=== PATIENT | male | born 1955 | race Hispanic/Latino ===

== ENCOUNTER 2020-05-29 12:33 | Observation (INO) | payer OTHER ==
[~2020-05-29] VITALS: Ht 182.9 cm; Wt 142.9 kg
[2020-05-29 13:13] LABS: BASOPHILS % (AUTO) 0.6 % (0.0-5.0); HEMATOCRIT 38.8 % (42-54); LYMPHOCYTES % (AUTO) 27.1 % (21.0-51.0); MEAN CORPUSCULAR HEMOGLOBIN 34.1 pg (27.0-33.0); MEAN CORPUSCULAR VOLUME 100.3 fL (79-99); MONOCYTES % (AUTO) 7.6 % (3.0-13.0); NEUTROPHILS % (AUTO) 63.4 % (40.0-77.0); PLATELET COUNT (AUTO) 345 K/uL (130-400); RED BLOOD CELL COUNT(AUTO) 3.87 MIL/uL (4.50-6.20); RED CELL DISTRIBUTION WIDTH 13.1 % (11.0-15.5)
[2020-05-29] MEDS ORDERED: ASPIRIN 325 MG TABLET ONE (13:14)
[2020-05-29 13:24] LABS: INR 0.96 (0.85-1.15); PROTHROMBIN TIME 10.5 SEC (9.6-11.6)
[2020-05-29 13:25] LABS: PARTIAL THROMBOPLASTIN TIME 27.3 SEC (26.3-35.5)
[2020-05-29 13:31] LABS: CREATININE 0.9 mg/dL (0.5-1.5); POTASSIUM 4.1 mmol/L (3.5-5.1)
[2020-05-29 13:35] LABS: ALBUMIN 3.9 g/dL (3.5-5.0); BILIRUBIN,TOTAL 0.4 mg/dL (0.2-1.0); TOTAL PROTEIN, SERUM 7.5 g/dL (6.0-8.3)
[2020-05-29 13:42] LABS: B-TYPE NATRIURETIC PEPTIDE 49 pg/mL (0-100)
[2020-05-29 14:21] LABS: APPEARANCE,URINE Clear (CLEAR); BILIRUBIN,URINE Negative (NEGATIVE); COLOR,URINE Yellow (YELLOW); GLUCOSE, URINE (UA) Negative (NEGATIVE); KETONES,URINE Negative (NEGATIVE); LEUKOCYTE ESTERASE ,URINE Negative (NEGATIVE); NITRATE,URINE Negative (NEGATIVE); OCCULT BLOOD,URINE Negative (NEGATIVE); PH,URINE 6.5 (5.0-8.0); PROTEIN,URINE Negative (NEGATIVE); UROBILINOGEN,URINE 0.2 mg/dL (0.2-1.0)
[2020-05-29] MEDS ORDERED: MORPHINE SULFATE 2 MG/ML 1ML SYG IVP PRN (15:15)
[2020-05-29] MEDS ORDERED: NITROGLYCERIN 0.4 MG SL TAB SL PRN (15:15)
[2020-05-29 15:48] LABS: THYROID STIMULATING HORMONE 0.14 uIU/mL (0.36-3.74)
[2020-05-29] MEDS ORDERED: CYCLOBENZAPRINE HCL 10 MG TABLET PO PRN (16:00)
[2020-05-29 19:37] LABS: HEMOGLOBIN A1C 5.9 % (4.0-6.0)
[2020-05-29] MEDS: FAMOTIDINE 20MG TAB 20 MG TAB PO SCH (21:00)
[2020-05-29] MEDS: TIZANIDINE HCL 2 MG TABLET PO SCH (21:00)
[2020-05-29] MEDS: ATORVASTATIN CALCIUM 40 MG TABLET PO SCH (21:00)
[2020-05-29] MEDS: MONTELUKAST SODIUM 10 MG TAB PO SCH (21:00)
[2020-05-29] MEDS: CARVEDILOL 6.25 MG TABLET PO SCH (21:00)
[2020-05-29 21:30] VITALS: BP 195/96
[2020-05-29 22:27] VITALS: BP 147/82
[2020-05-29] MEDS ORDERED: ASPI-1197 PO (22:33)
[2020-05-29] MEDS ORDERED: ATOR40TA69 PO (22:33)
[2020-05-29] MEDS ORDERED: MONT10TA32 PO (22:33)
[2020-05-29] MEDS ORDERED: CETI10TA57 PO (22:33)
[2020-05-29] MEDS ORDERED: DULO60CA64 PO (22:33)
[2020-05-29] MEDS ORDERED: LISI20TA24 PO (22:33)
[2020-05-29] MEDS ORDERED: ASCO500T20 PO (22:33)
[2020-05-29] MEDS ORDERED: RANITIDINE PO (22:33)
[2020-05-29] MEDS ORDERED: ALBU8.5H8 IH (22:33)
[2020-05-29] MEDS ORDERED: NITR0.4T50 SL (22:33)
[2020-05-29] MEDS ORDERED: CARV6.25 PO (22:33)
[2020-05-29] MEDS ORDERED: LEVO150C4 PO (22:33)
[2020-05-29] MEDS ORDERED: CYCL10TA7 PO (22:33)
[2020-05-29] MEDS ORDERED: TIZA4CAP PO (22:33)
[2020-05-29 23:38] VITALS: BP 131/66
[2020-05-30] VITALS (10 sets, daily range): BP systolic 108–199; BP diastolic 67–96
[2020-05-30] MEDS: LEVOTHYROXINE 75 MCG TABLET PO SCH (05:05)
[2020-05-30] MEDS: ASPIRIN 81MG TAB.CHEW PO SCH (07:40)
[2020-05-30] MEDS: DULOXETINE HCL 30 MG CAP PO SCH (07:40)
[2020-05-30] MEDS: TIZANIDINE HCL 2 MG TABLET PO SCH ×2 (07:41→20:24)
[2020-05-30] MEDS: CARVEDILOL 6.25 MG TABLET PO SCH ×2 (07:41→20:24)
[2020-05-30] MEDS: FAMOTIDINE 20MG TAB 20 MG TAB PO SCH ×2 (07:41→20:25)
[2020-05-30] MEDS: CETIRIZINE HCL 5 MG TABLET PO SCH (07:41)
[2020-05-30] MEDS: ENOXAPARIN SODIUM 40 MG/0.4 ML SYRINGE SQ SCH (07:50)
[2020-05-30] MEDS ORDERED: LISINOPRIL 10 MG TABLET PO SCH (09:00)
[2020-05-30] MEDS ORDERED: SODIUM BICARB 50MEQ 50ML VIAL 50 ML ONE (16:03)
[2020-05-30] MEDS ORDERED: BIVALIRUDIN 250 MG/VIAL IV ONE (16:03)
[2020-05-30] MEDS ORDERED: LIDOCAINE HCL 2% 20ML ONE (16:04)
[2020-05-30] MEDS ORDERED: IOHEXOL-350 50ML VIAL IV ONE (16:04)
[2020-05-30] MEDS ORDERED: NITROGLYCERIN 2 MG/VIAL VIAL IV ONE (16:04)
[2020-05-30] MEDS ORDERED: IOHEXOL 350 MG/ML 100ML INFUS..BTL IV ONE (16:04)
[2020-05-30] MEDS ORDERED: MIDAZOLAM HCL 1 MG/ML 2ML VIAL ONE (16:04)
[2020-05-30] MEDS ORDERED: FENTANYL CITRATE PF 50 MCG/1 ML 2ML VIAL ONE (16:04)
[2020-05-30] MEDS ORDERED: LABETALOL 20 MG/4 ML DISP.SYRIN IV ONE (16:32)
[2020-05-30] MEDS ORDERED: LABETALOL HCL 5 MG/ML 20ML VIAL IV ONE (16:55)
[2020-05-30] MEDS ORDERED: ENALAPRILAT DIHYDRATE 1.25 MG/ML 2ML VIAL IVP ONE (17:07)
[2020-05-30] MEDS ORDERED: SODIUM CHLORIDE 0.9% 1000ML 1,000 ML IV SCH (17:30)
[2020-05-30] MEDS: MONTELUKAST SODIUM 10 MG TAB PO SCH (20:25)
[2020-05-30] MEDS: ATORVASTATIN CALCIUM 40 MG TABLET PO SCH (20:25)
[2020-05-31 03:40] VITALS: BP 139/89
[2020-05-31 05:56] LABS: HEMATOCRIT 38.5 % (42-54); MEAN CORPUSCULAR HEMOGLOBIN 33.2 pg (27.0-33.0); MEAN CORPUSCULAR VOLUME 100.5 fL (79-99); RED BLOOD CELL COUNT(AUTO) 3.83 MIL/uL (4.50-6.20); RED CELL DISTRIBUTION WIDTH 13.2 % (11.0-15.5); WHITE BLOOD COUNT (AUTO) 7.1 K/uL (4.8-10.8)
[2020-05-31] MEDS: LEVOTHYROXINE 75 MCG TABLET PO SCH (06:31)
[2020-05-31 06:40] LABS: CREATININE 0.9 mg/dL (0.5-1.5)
[2020-05-31] MEDS ORDERED: LOSARTAN 50 MG TABLET PO SCH (09:00)
[2020-05-31] MEDS: ENOXAPARIN SODIUM 40 MG/0.4 ML SYRINGE SQ SCH (09:00)
[2020-05-31] MEDS ORDERED: HYDROCHLOROTHIAZIDE 25 MG TABLET PO SCH (09:00)
[2020-05-31] MEDS ORDERED: AMILORIDE HCL 5 MG TABLET PO SCH (09:00)
[2020-05-31 09:02] VITALS: BP 161/89
[2020-05-31] MEDS: ASPIRIN 81MG TAB.CHEW PO SCH (09:20)
[2020-05-31] MEDS: CETIRIZINE HCL 5 MG TABLET PO SCH (09:20)
[2020-05-31] MEDS: DULOXETINE HCL 30 MG CAP PO SCH (09:21)
[2020-05-31] MEDS: CARVEDILOL 6.25 MG TABLET PO SCH (09:23)
[2020-05-31] MEDS: FAMOTIDINE 20MG TAB 20 MG TAB PO SCH (09:23)
[2020-05-31] MEDS: TIZANIDINE HCL 2 MG TABLET PO SCH (09:23)
[2020-05-31] MEDS ORDERED: AMIL5TAB8 PO (12:27)
[2020-05-31] MEDS ORDERED: LEVO75TA4 PO (12:27)
[2020-05-31] MEDS ORDERED: LOSA50TA2 PO (12:27)
[2020-05-31] MEDS ORDERED: HYDR25TA PO (12:27)
[2020-05-31 13:05] VITALS: BP 145/100
== END 2020-05-31 14:00 | disposition home or self-care (01) ==
LOC: EDH 12:33 → EDHIP 15:08 → 3DH 21:19
PROVIDERS: ADMIT Internal Medicine; ATTEND Internal Medicine
DX: I25.119 Atherosclerotic heart disease of native coronary artery with unspecified angina pectoris (principal); Z20.822 Contact with and (suspected) exposure to COVID-19; I10 Essential (primary) hypertension; I25.2 Old myocardial infarction; E78.5 Hyperlipidemia, unspecified; E03.9 Hypothyroidism, unspecified; E05.00 Thyrotoxicosis with diffuse goiter without thyrotoxic crisis or storm; G47.33 Obstructive sleep apnea (adult) (pediatric); E66.9 Obesity, unspecified; I21.9 Acute myocardial infarction, unspecified; Z85.46 Personal history of malignant neoplasm of prostate; Z90.79 Acquired absence of other genital organ(s); Z90.49 Acquired absence of other specified parts of digestive tract; Z95.5 Presence of coronary angioplasty implant and graft; Z95.1 Presence of aortocoronary bypass graft; Z79.82 Long term (current) use of aspirin; Z79.899 Other long term (current) drug therapy; Z68.41 Body mass index [BMI] 40.0-44.9, adult
CPT/HCPCS: 36415 ×3; 71045; 80048; 80053; 80061; 81003; 82550; 83036; 83880 ×2; 84439; 84443; 84481; 84484 ×3; 85025; 85027; 85610; 85730; 87426; 93005 ×2; 93306; 93356; 93459; 94660 ×2; 96360; 96361 ×2; 99291; C1760; C1769; C1894 ×2; G0378 ×43; J1644; J2250; J3010; J3490 ×5; Q9965 ×2; Q9967 ×2; U0003; 99156; 99157; J0583; J1650

== ENCOUNTER → 2020-07-06 | Outpatient (CLI) | payer OTHER ==
[~2020-07-06] MED LIST: ALBU8.5H8 IH; AMIL5TAB8 PO; ASCO500T20 PO; ASPI-1197 PO; ATOR40TA69 PO; CARV6.25 PO; CETI10TA57 PO; CYCL10TA7 PO; DULO60CA64 PO; HYDR25TA PO; LEVO75TA4 PO; LOSA50TA2 PO; MONT10TA32 PO; NITR0.4T50 SL; RANITIDINE PO; TIZA4CAP PO
== END | disposition home or self-care (01) ==
LOC: RAH 07:37
PROVIDERS: ATTEND Internal Medicine Cardiovascular Disease
DX: K76.0 Fatty (change of) liver, not elsewhere classified (principal); R16.0 Hepatomegaly, not elsewhere classified; R94.5 Abnormal results of liver function studies
CPT/HCPCS: 76705